=== PATIENT | female | born 2000 | race Caucasian/White ===

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

== ENCOUNTER 2024-12-15 17:51 | Emergency (ER) | payer OTHER ==
[~2024-12-15] VITALS: Ht 160 cm; Wt 68.0 kg
[~2024-12-15 17:51] MED LIST: CELEBREX100 MG PO; SKELAXIN800 MG PO
[2024-12-15] MEDS ORDERED: GUAIFENESIN/DEXTROMETHORPHAN 100MG/10ML BLIST.PACK PO STA (22:43)
[2024-12-15] MEDS ORDERED: GUAIFENESIN 200 MG/10 ML BLIST.PACK PO ONE (22:51)
[2024-12-15 23:11] LABS: BASO % 0.2 % (0.1-1.2); EOS # 0.04 (0.04-0.54); EOS % 0.5 % (0.7-7.0); LYMPH # 1.15 (1.18-3.74); LYMPH % 13.3 % (19.3-53.1); MEAN PLATELET VOLUME 9.00 fl (9.4-12.4); MONO # 0.73 (0.24-0.82); MONO % 8.4 % (4.7-12.5); NEUT # 6.72 (1.56-6.13); NEUT % 77.5 % (34.0-71.1); RED CELL DISTRIBUTION WIDTH 12.4 % (11.6-14.4)
[2024-12-15 23:55] LABS: ALT/SGPT 16.0 U/L (12-78); AST/SGOT 12.0 U/L (15-37); BILIRUBIN TOTAL 0.44 mg/dL (0.3-1.2); BUN CREA RATIO 7.0 (7.0-25.0); CREATININE SERUM 0.71 mg/dL (0.55-1.02); GFR 102.94; GLOBULINA 3.7 G/DL (2.4-3.5); GLUCOSE FASTING 153.0 mg/dL (65-100); OSMOLALITY SERUM 282.0 MOSM/KG (275-295)
[2024-12-16 00:05] LABS: TSH 0.346 uIU/mL (0.358-3.74)
[2024-12-16 00:29] LABS: COVID-19 AG NEGATIVE (NEGATIVE)
[2024-12-16] MEDS ORDERED: ALBUTEROL2.5 MG/3 M IH (02:41)
[2024-12-16] MEDS ORDERED: ZYNCOF 20-400120 ML PO (02:41)
[2024-12-16] MEDS ORDERED: ZITHROMAX500 MG PO (02:41)
== END 2024-12-16 02:42 ==
LOC: ER 17:51
PROVIDERS: General Practice
DX: J06.9 Acute upper respiratory infection, unspecified (principal); Z20.822 Contact with and (suspected) exposure to COVID-19; R00.2 Palpitations